=== PATIENT | male | born 1985 | race Asian ===

== ENCOUNTER 2018-01-11 16:09 | Emergency (ER) | payer SELFPAY ==
[~2018-01-11] VITALS: Ht 177.8 cm; Wt 90.9 kg
[2018-01-11] MEDS ORDERED: ACETAMINOPHEN 500 MG TABLET PO ONE (17:45)
[2018-01-11] MEDS ORDERED: PENICILLIN G BENZATHINE LA 1,200,000 UNITS/2 ML SYRINGE IM ONE (18:30)
[2018-01-11 19:12] VITALS: BP 146/75
[2018-01-11] MEDS ORDERED: KETOROLAC TROMETHAMINE 30 MG/ML VIAL IM ONE (19:15)
== END 2018-01-11 19:25 | disposition home or self-care (01) ==
LOC: EMS 16:09
DX: J02.0 Streptococcal pharyngitis (principal)
CPT/HCPCS: 87430; 96372; 99283; J0561